=== PATIENT | female | born 1955 | race Caucasian/White ===

== ENCOUNTER 2021-04-12 12:25 | Emergency (ER) | payer OTHER ==
[~2021-04-12 12:25] MED LIST: ASPIRIN EC81 MG PO; CEFUROXIME250 MG PO; LOPRESSOR 25 MG25 MG PO; NORCO 5-325 TA1 EACH PO; OMEPRAZOLE20 MG PO; PREDNISONE20 MG PO; TAB-A-VITE1 EACH PO; VIBRAMYCIN100 MG PO; VITAMIN B-1 5050 MG PO; ZOLOFT50 MG PO
[2021-04-12 14:40] LABS: RED BLOOD COUNT 5.16 M/UL (4.00-5.10); WHITE BLOOD COUNT 13.2 K/UL (4.5-11.0)
[2021-04-12 15:29] LABS: BUN/CREATININE RATIO 10 (0-10)
== END 2021-04-12 15:12 | disposition left against medical advice (07) ==
LOC: ER1 12:25
PROVIDERS: Emergency Medicine
DX: R10.30 Lower abdominal pain, unspecified (principal); R11.10 Vomiting, unspecified; R53.1 Weakness; J44.9 Chronic obstructive pulmonary disease, unspecified; Z20.822 Contact with and (suspected) exposure to COVID-19; I10 Essential (primary) hypertension; F17.210 Nicotine dependence, cigarettes, uncomplicated
CPT/HCPCS: 80053; 82550; 82553; 83605; 83735; 83874; 84100; 84484; 85025; 87040; 93005; 96374; 99284; J2405; U0002

== ENCOUNTER 2021-04-19 20:21 | Emergency (ER) | payer OTHER ==
[2021-04-19 20:45] LABS: HEMOGLOBIN 16.8 gm/dl (12.3-15.3); RED BLOOD COUNT 5.11 M/UL (4.00-5.10)
[2021-04-19 21:14] LABS: BUN/CREATININE RATIO 12 (0-10)
== END 2021-04-19 22:17 | disposition home or self-care (01) ==
LOC: ER1 20:21
PROVIDERS: Emergency Medicine
DX: E86.0 Dehydration (principal); R53.1 Weakness; J44.9 Chronic obstructive pulmonary disease, unspecified; F17.210 Nicotine dependence, cigarettes, uncomplicated; E87.6 Hypokalemia; Z20.822 Contact with and (suspected) exposure to COVID-19
CPT/HCPCS: 71045; 80048; 82550; 82553; 83874; 83880; 84484; 85025; 93005; 99285; U0002

== ENCOUNTER 2021-04-29 12:38 | Inpatient (IN) | payer OTHER ==
[~2021-04-29] VITALS: Ht 175.3 cm; Wt 77.1 kg
[2021-04-29 13:57] LABS: HEMOGLOBIN 15.9 gm/dl (12.3-15.3); RED BLOOD COUNT 4.9 M/UL (4.00-5.10); WHITE BLOOD COUNT 18.4 K/UL (4.5-11.0)
[2021-04-29 14:26] LABS: BUN/CREATININE RATIO 41 (0-10)
[2021-04-30 07:00] LABS: BUN/CREATININE RATIO 42 (0-10)
[2021-04-30 11:17] LABS: WHITE BLOOD COUNT 16.4 K/UL (4.5-11.0)
[2021-04-30 11:18] LABS: RED BLOOD COUNT 4.13 M/UL (4.00-5.10)
[2021-04-30 11:19] LABS: HEMOGLOBIN 12.8 gm/dl (12.3-15.3)
[2021-04-30 16:38] LABS: BUN/CREATININE RATIO 37 (0-10)
[2021-05-01 05:15] LABS: RED BLOOD COUNT 4.15 M/UL (4.00-5.10)
[2021-05-01 05:29] LABS: WHITE BLOOD COUNT 11.6 K/UL (4.5-11.0)
[2021-05-01 06:01] LABS: BUN/CREATININE RATIO 38 (0-10)
[2021-05-01 11:21] LABS: BUN/CREATININE RATIO 30 (0-10)
[2021-05-02 05:22] LABS: HEMOGLOBIN 11.1 gm/dl (12.3-15.3); WHITE BLOOD COUNT 8.9 K/UL (4.5-11.0)
[2021-05-02 05:25] LABS: BUN/CREATININE RATIO 31 (0-10)
[2021-05-02 05:47] LABS: RED BLOOD COUNT 3.53 M/UL (4.00-5.10)
[2021-05-03 06:56] LABS: HEMOGLOBIN 12.6 gm/dl (12.3-15.3); WHITE BLOOD COUNT 7.1 K/UL (4.5-11.0)
[2021-05-03 06:57] LABS: RED BLOOD COUNT 4.17 M/UL (4.00-5.10)
[2021-05-03 08:01] LABS: BUN/CREATININE RATIO 17 (0-10)
[2021-05-03 12:14] LABS: HBSAG SCREEN Negative (Negative); HEP B CORE AB, TOT Negative (Negative); HEP C VIRUS AB >11.0 (0.0-0.9)
[2021-05-04 07:19] LABS: HEMOGLOBIN 12.3 gm/dl (12.3-15.3); RED BLOOD COUNT 4.05 M/UL (4.00-5.10)
[2021-05-04 07:36] LABS: WHITE BLOOD COUNT 9.8 K/UL (4.5-11.0)
[2021-05-04 07:54] LABS: BUN/CREATININE RATIO 19 (0-10)
--- NOTE | 2021-05-04 11:57 | NUR ---
PATIENT REFUSED LUNCH. NURSE ENCOURAGED PATIENT TO EAT. PATIENT CONTINUED TO REFUSE.
--- NOTE | 2021-05-04 17:58 | NUR ---
PATIENT REFUSED ALL DINNER. STAFF DEVELOPMENT COORDINATOR RN ATTEMPTED TO ASSIST/FEED PATIENT AND PATIENT REFUSED. RN ATTEMPTED TO ASSIST/FEED PATIENT AND PATIENT REFUSED. PATIENT REFUSED ALL LIQUIDS AND FOODS.
--- NOTE | 2021-05-05 13:25 | NUR ---
PATIENT CONTINUES TO REFUSE TO EAT OR DRINK. ATTEMPTED TO ASSIST/FEED PATIENT BY SEVERAL STAFF MEMBERS UNSUCCESSFUL. ENCOURAGED IMPORTANCE OF EATING AND DRINKING. PATIENT FAMILY AND MD AWARE. WILL CONTINUE TO ENCOURAGE.
[2021-05-07 05:12] LABS: HEMOGLOBIN 12.3 gm/dl (12.3-15.3); RED BLOOD COUNT 3.98 M/UL (4.00-5.10); WHITE BLOOD COUNT 8.9 K/UL (4.5-11.0)
[2021-05-07 05:36] LABS: BUN/CREATININE RATIO 12 (0-10)
--- NOTE | 2021-05-08 09:45 | NUR ---
MANUFACTURING CONTROLLER ATTEMPTED TO ASSIST/FEED PATIENT AND PATIENT REFUSED. NURSE ATTEMPTED TO ASSIST/FEED PATIENT AND PATIENT REFUSED. PATIENT DID TAKE MEDS CRUSHED IN APPLESAUCE.
--- NOTE | 2021-05-08 11:54 | NUR ---
PATIENT REFUSED LUNCH. VP [employer] AND NURSE ATTEMPTED TO ASSIST/FEED PATIENT AND SHE REFUSED. PATIENT DID ACCEPT FLUIDS.
[2021-05-09 07:48] LABS: HEMOGLOBIN 11.9 gm/dl (12.3-15.3); RED BLOOD COUNT 3.93 M/UL (4.00-5.10)
[2021-05-09 07:52] LABS: WHITE BLOOD COUNT 11.6 K/UL (4.5-11.0)
[2021-05-09 08:39] LABS: BUN/CREATININE RATIO 10 (0-10)
--- NOTE | 2021-05-09 17:24 | NUR ---
PATIENT PULLED IV OUT. REFUSING NEW IV. HERE AND NOTIFIED.
[2021-05-10 05:07] LABS: BUN/CREATININE RATIO 8 (0-10)
[2021-05-13] MEDS ORDERED: DRONABINOL2.5 MG PO (18:09)
[2021-05-13] MEDS ORDERED: LOPRESSOR 25 MG25 MG PO (18:09)
[2021-05-13] MEDS ORDERED: IPRAT-ALBUT 0.5-3 ML NEB (18:09)
[2021-05-13] MEDS ORDERED: QUETIAPINE FUMA25 MG PO (18:09)
[2021-05-13] MEDS ORDERED: MEGACE 400400 MG/10 PO (18:09)
[2021-05-13] MEDS ORDERED: FAMOTIDINE20 MG PO (18:09)
[2021-05-13] MEDS ORDERED: THERAGRAN M TAB1 EA PO (18:09)
[2021-05-13] MEDS ORDERED: VITAMIN B-1100 M1 PO (18:09)
[2021-05-13] MEDS ORDERED: REMERON 15 MG T15 MG PO (18:09)
[2021-05-14 07:12] LABS: HEMOGLOBIN 12.9 gm/dl (12.3-15.3); RED BLOOD COUNT 4.26 M/UL (4.00-5.10); WHITE BLOOD COUNT 10.8 K/UL (4.5-11.0)
[2021-05-14 07:36] LABS: BUN/CREATININE RATIO 16 (0-10)
[2021-05-17 05:32] LABS: HEMOGLOBIN 11.6 gm/dl (12.3-15.3); WHITE BLOOD COUNT 12.4 K/UL (4.5-11.0)
[2021-05-17 05:45] LABS: RED BLOOD COUNT 3.79 M/UL (4.00-5.10)
[2021-05-17 05:46] LABS: BUN/CREATININE RATIO 12 (0-10)
[2021-05-18 06:24] LABS: HEMOGLOBIN 12.4 gm/dl (12.3-15.3); RED BLOOD COUNT 4.03 M/UL (4.00-5.10); WHITE BLOOD COUNT 10.6 K/UL (4.5-11.0)
[2021-05-18 06:41] LABS: BUN/CREATININE RATIO 12 (0-10)
--- NOTE | 2021-05-18 15:02 | NUR ---
informed dr. lyons earlier of patient low urinary output
[2021-05-19 05:50] LABS: HEMOGLOBIN 11.3 gm/dl (12.3-15.3); RED BLOOD COUNT 3.69 M/UL (4.00-5.10); WHITE BLOOD COUNT 8.3 K/UL (4.5-11.0)
[2021-05-19 06:15] LABS: BUN/CREATININE RATIO 9 (0-10)
[2021-05-20 06:59] LABS: HEMOGLOBIN 11.5 gm/dl (12.3-15.3); RED BLOOD COUNT 3.76 M/UL (4.00-5.10)
[2021-05-20 07:17] LABS: BUN/CREATININE RATIO 7 (0-10)
[2021-05-21 08:20] LABS: HEMOGLOBIN 11.4 gm/dl (12.3-15.3); RED BLOOD COUNT 3.87 M/UL (4.00-5.10); WHITE BLOOD COUNT 10.5 K/UL (4.5-11.0)
[2021-05-21 08:51] LABS: BUN/CREATININE RATIO 5 (0-10)
[2021-05-22 07:23] LABS: HEMOGLOBIN 11.8 gm/dl (12.3-15.3); RED BLOOD COUNT 3.93 M/UL (4.00-5.10); WHITE BLOOD COUNT 11.3 K/UL (4.5-11.0)
[2021-05-22 07:49] LABS: BUN/CREATININE RATIO 6 (0-10)
[2021-05-23 05:34] LABS: HEMOGLOBIN 11.9 gm/dl (12.3-15.3); RED BLOOD COUNT 3.8 M/UL (4.00-5.10)
[2021-05-23 05:46] LABS: WHITE BLOOD COUNT 8.4 K/UL (4.5-11.0)
[2021-05-23 06:46] LABS: BUN/CREATININE RATIO 6 (0-10)
[2021-05-24 04:26] LABS: HEMOGLOBIN 12.6 gm/dl (12.3-15.3); RED BLOOD COUNT 4.17 M/UL (4.00-5.10)
[2021-05-24 05:07] LABS: BUN/CREATININE RATIO 6 (0-10)
[2021-05-25 10:22] LABS: HEMOGLOBIN 11.3 gm/dl (12.3-15.3); WHITE BLOOD COUNT 8.8 K/UL (4.5-11.0)
[2021-05-25 10:24] LABS: RED BLOOD COUNT 3.74 M/UL (4.00-5.10)
[2021-05-25 11:17] LABS: BUN/CREATININE RATIO 4 (0-10)
[2021-05-26 06:58] LABS: RED BLOOD COUNT 3.67 M/UL (4.00-5.10); WHITE BLOOD COUNT 9.5 K/UL (4.5-11.0)
[2021-05-26 07:27] LABS: BUN/CREATININE RATIO 6 (0-10)
[2021-05-27 06:46] LABS: HEMOGLOBIN 11.6 gm/dl (12.3-15.3); RED BLOOD COUNT 3.85 M/UL (4.00-5.10); WHITE BLOOD COUNT 8.8 K/UL (4.5-11.0)
[2021-05-27 07:14] LABS: BUN/CREATININE RATIO 5 (0-10)
[2021-05-28 08:30] LABS: HEMOGLOBIN 11.8 gm/dl (12.3-15.3); RED BLOOD COUNT 3.97 M/UL (4.00-5.10)
[2021-05-28 08:31] LABS: WHITE BLOOD COUNT 11.2 K/UL (4.5-11.0)
[2021-05-28 09:06] LABS: BUN/CREATININE RATIO 6 (0-10)
[2021-05-29 08:54] LABS: HEMOGLOBIN 11.6 gm/dl (12.3-15.3); RED BLOOD COUNT 3.83 M/UL (4.00-5.10); WHITE BLOOD COUNT 10.9 K/UL (4.5-11.0)
[2021-05-29 09:19] LABS: BUN/CREATININE RATIO 6 (0-10)
[2021-05-30 07:11] LABS: HEMOGLOBIN 11.5 gm/dl (12.3-15.3); RED BLOOD COUNT 3.79 M/UL (4.00-5.10); WHITE BLOOD COUNT 10.4 K/UL (4.5-11.0)
[2021-05-30 07:23] LABS: BUN/CREATININE RATIO 4 (0-10)
--- NOTE | 2021-05-30 16:03 | NUR ---
NOTIFIED MD OF CHEST XRAY RESULTS, MD ORDERED REPEAT CHEST XRAY.
[2021-05-30 22:08] LABS: HCV LOG10 5.922 (.); HEPATITIS C QUANTITATION 835000 IU/mL (.)
[2021-06-02 16:44] LABS: BUN/CREATININE RATIO 9 (0-10)
[2021-06-04 08:34] LABS: BUN/CREATININE RATIO 9 (0-10)
--- NOTE | 2021-06-06 05:25 | NUR ---
PATIENT ONLY HAD 100 CC OUT IN 12 HOURS PROVIDER NOTIFIED RECICEVED ORDERS TO BLADDER SCAN PATIENT, FLUSH CATH, AND ENSURE THAT A BMP IS ORDERED FOR THIS AM. FIRST I BLADDER SCANNED THE PATIENT AND OBTAINED 130 CC OF FLUID. THEN I FLUSHED CATH AND 60 CC OF FLUSH RETURNED FROM BLADDER, FOLLOWED BY 40 CC OF PURLENT THICK URINE. PATIENT TOLERATE PROCEDURE WELL WITH NO COMPLAITNS AT THIS TIME. WHILE PERFORMING BLADDER SCAN PATIENT DID COMPLAIN OF MILD PAIN IN THE SUPRAPUBIC AREA
[2021-06-06 08:55] LABS: BUN/CREATININE RATIO 14 (0-10)
[2021-06-07 07:33] LABS: HEMOGLOBIN 11.3 gm/dl (12.3-15.3); RED BLOOD COUNT 3.84 M/UL (4.00-5.10); WHITE BLOOD COUNT 7.5 K/UL (4.5-11.0)
[2021-06-07 07:52] LABS: BUN/CREATININE RATIO 15 (0-10)
[2021-06-08 06:56] LABS: HEMOGLOBIN 11.2 gm/dl (12.3-15.3); RED BLOOD COUNT 3.86 M/UL (4.00-5.10); WHITE BLOOD COUNT 5.9 K/UL (4.5-11.0)
[2021-06-08 07:03] LABS: BUN/CREATININE RATIO 18 (0-10)
[2021-06-10 07:31] LABS: HEMOGLOBIN 11.9 gm/dl (12.3-15.3); RED BLOOD COUNT 4.07 M/UL (4.00-5.10)
[2021-06-10 07:35] LABS: WHITE BLOOD COUNT 8.7 K/UL (4.5-11.0)
[2021-06-10 07:53] LABS: BUN/CREATININE RATIO 12 (0-10)
[2021-06-13 07:02] LABS: HEMOGLOBIN 10.5 gm/dl (12.3-15.3); WHITE BLOOD COUNT 8.6 K/UL (4.5-11.0)
[2021-06-13 07:03] LABS: RED BLOOD COUNT 3.62 M/UL (4.00-5.10)
[2021-06-13 07:20] LABS: BUN/CREATININE RATIO 12 (0-10)
[2021-06-15] MEDS ORDERED: ACETAMINOPHEN325 MG PO (19:18)
--- NOTE | 2021-06-16 06:24 | NUR ---
PT WAS BEING DISCHARGED AT 0800 BUT WITH ORDERED COVID SWAB THIS AM PT WAS COVID POSITIVE. OR FIRST ASSIST REGISTERED NURSE AND DR. DAY MADE AWARE OF RESULT AND SITUATION.
[2021-06-17 07:04] LABS: RED BLOOD COUNT 3.51 M/UL (4.00-5.10); WHITE BLOOD COUNT 4.6 K/UL (4.5-11.0)
[2021-06-17 07:44] LABS: BUN/CREATININE RATIO 16 (0-10)
[2021-06-21 06:40] LABS: HEMOGLOBIN 10.7 gm/dl (12.3-15.3); RED BLOOD COUNT 3.67 M/UL (4.00-5.10); WHITE BLOOD COUNT 5.7 K/UL (4.5-11.0)
[2021-06-21 07:16] LABS: BUN/CREATININE RATIO 17 (0-10)
[2021-06-23 05:35] LABS: RED BLOOD COUNT 3.5 M/UL (4.00-5.10); WHITE BLOOD COUNT 4.9 K/UL (4.5-11.0)
[2021-06-23 06:09] LABS: BUN/CREATININE RATIO 27 (0-10)
--- NOTE | 2021-06-24 02:07 | NUR ---
0200- Scanned patient's bladder since she has only had about 150ml of urine out since 1900 shift change. Bladder scanner shows 150ml or urine in bladder currently. Patient states she doesn't feel like she needs to void. She has drank some during the shift but will encourage patient to drink more fluids. Will continue to monitor patient closely.
[2021-06-25 05:53] LABS: HEMOGLOBIN 12.1 gm/dl (12.3-15.3); RED BLOOD COUNT 4.21 M/UL (4.00-5.10)
[2021-06-25 06:11] LABS: BUN/CREATININE RATIO 30 (0-10)
--- NOTE | 2021-06-26 10:34 | NUR ---
report given to missy admitting nurse at [facility].
--- NOTE | 2021-06-26 10:37 | NUR ---
case finisher laura garvin contacted [facility]
--- NOTE | 2021-06-26 10:57 | NUR ---
notified family mich cheung of transfer-acknoweldged. provided name and number of facility
--- NOTE | 2021-06-26 13:24 | NUR ---
notified missy and informed her that patient have her iv and was not able to discontinue. she stated she will take care of it when patient arrived to their facility
== END 2021-06-26 12:44 | DRG 871 ==
LOC: ER1 12:38 → CCU 21:03 → M/S 21:03 → CDU 21:03 → CCU 04-30 09:00 → ZOBSOF 05-02 13:09 → M/S 05-02 18:32
PROVIDERS: Family Medicine; Internal Medicine; Internal Medicine Infectious Disease; Physician Assistant; ADMIT Emergency Medicine
PROC: 0DH63UZ Insertion of Feeding Device into Stomach, Percutaneous Approach (ICD-10-PCS; principal; 2021-05-01)
PROC: HZ2ZZZZ Detoxification Services for Substance Abuse Treatment (ICD-10-PCS; 2021-05-01)
PROC: 3E0336Z Introduction of Nutritional Substance into Peripheral Vein, Percutaneous Approach (ICD-10-PCS; 2021-05-01)
DX: A41.52 Sepsis due to Pseudomonas (principal); L89.153 Pressure ulcer of sacral region, stage 3; J12.82 Pneumonia due to coronavirus disease 2019; U07.1 COVID-19; L89.323 Pressure ulcer of left buttock, stage 3; L89.313 Pressure ulcer of right buttock, stage 3; G93.41 Metabolic encephalopathy; J96.21 Acute and chronic respiratory failure with hypoxia; J69.0 Pneumonitis due to inhalation of food and vomit; E43 Unspecified severe protein-calorie malnutrition; J44.0 Chronic obstructive pulmonary disease with (acute) lower respiratory infection; E87.2 Acidosis; E87.1 Hypo-osmolality and hyponatremia; S22.061A Stable burst fracture of T7-T8 vertebra, initial encounter for closed fracture; J98.11 Atelectasis; Z68.1 Body mass index [BMI] 19.9 or less, adult; N30.00 Acute cystitis without hematuria; E88.09 Other disorders of plasma-protein metabolism, not elsewhere classified; R65.20 Severe sepsis without septic shock; F41.9 Anxiety disorder, unspecified; I10 Essential (primary) hypertension; E86.0 Dehydration; F17.200 Nicotine dependence, unspecified, uncomplicated; F10.20 Alcohol dependence, uncomplicated; E87.6 Hypokalemia; R73.9 Hyperglycemia, unspecified; F32.A Depression, unspecified; R53.81 Other malaise; B37.2 Candidiasis of skin and nail; I95.9 Hypotension, unspecified; R13.10 Dysphagia, unspecified; F03.90 Unspecified dementia, unspecified severity, without behavioral disturbance, psychotic disturbance, mood disturbance, and anxiety; Z91.14 Patient's other noncompliance with medication regimen; Z82.49 Family history of ischemic heart disease and other diseases of the circulatory system; Z98.890 Other specified postprocedural states; Z79.899 Other long term (current) drug therapy
CPT/HCPCS: 36415; 36600; 51702; 70450; 71045; 72128; 80048; 80053; 80202; 80307; 81001; 82009; 82140; 82550; 82553; 82607; 82803; 82962; 83036; 83605; 83690; 83735; 83874; 84100; 84132; 84439; 84443; 84484; 85025; 85027; 85610; 86140; 86704; 86706; 86708; 86803; 87040; 87077; 87086; 87186; 87340; 87522; 92526; 92610; 93005; 94640; 94664; 94760; 96365; 97110; 97110-GP-CQ; 97162; 97166; 97530; 97530-GP-CQ; 99284; A6212; C9113; G0480; J0692; J0696; J1335; J1630; J1650; J2060; J2185; J2405; J3370; J3411; J3480; J3486; J7030; J7040; J7050; J7070; Q9967; U0002